=== PATIENT | female | born 1950 | race Caucasian/White ===

== ENCOUNTER 2019-05-14 16:37 | Emergency (ER) | payer OTHER ==
[~2019-05-14] VITALS: Ht 149.9 cm; Wt 57.2 kg
--- OUTSIDE RECORDS SUMMARY | 2019-05-14 16:40 | XMS REPORT | Clinical Summary ---
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 Active lisinopril Take 20 mg by 0 (PRINIVIL,ZESTRIL) 20 mg mouth daily. tablet Active lisinopril-hydrochlorothi Take 1 tablet 0 azide by mouth (PRINZIDE,ZESTORETIC) daily. 20-25 mg per tablet Active dicyclomine (BENTYL) 20 0 //201 mg tablet 7 Active Problems Problem Noted Date Swelling of lymph node 07/05/2017 Hoarseness 06/15/2017 Social History Date Tobacco Use Types Packs/Day Years Used Never Smoker Smokeless Tobacco: Never Used Alcohol Use Drinks/Week oz/Week Comments Yes Sex Assigned at Date Recorded Not on file Industry Job Start Date Occupation Not on file Not on file Not on file Travel End Travel History Travel Start No recent travel history available. Last Filed Vital Signs Not on file Plan of Treatment Health Maintenance Due Date Last Done Comments BREAST CANCER SCREENING 1999 COLONOSCOPY SCREENING 1999 SHINGLES VACCINES (#1) 1999 65+ PNEUMOCOCCAL VACCINE 2014 (1 of 2 - PCV13) INFLUENZA VACCINE 05/01/2019 Results Not on fileafter 05/13/2018 Insurance Type Payer Benefit Subscriber ID Effective Phone Address Plan / Dates Group HMO [employer] TEX[employer] xxxxxxxxx 2016-[id number] MATTEO hanson Advance Directives Patient has advance care planning documents on file. For more information, radha e contact: Pio Jin [address] [place] [address]
--- OUTSIDE RECORDS SUMMARY | 2019-05-14 16:40 | XMS REPORT | Summary of Care ---
Author Author [facility] Primary Care [facility] Organization [facility] Address Unknown Phone Unavailable Encounter HQ Jeffreyntr_dennis(FIN) [id number] Date(s): 04/09/18 - 04/09/18 [facility] [address] [place], [place] [address] [phone] Discharge Disposition: Home or Self Care Attending Physician: Norah Ni MD Vital Signs Most recent to 1 oldest [Reference Range]: Height 149.86 cm (04/09/18 11:30 AM) Temperature Oral 98.3 DegF [96.4-99.1 DegF] (04/09/18 11:30 AM) Blood Pressure 203/96 mmHg [90-140/60-90 mmHg] *HI* (04/09/18 11:30 AM) Respiratory Rate 18 BRMIN [14-20 BRMIN] (04/09/18 11:30 AM) Peripheral Pulse 74 bpm Rate [60-100 bpm] (04/09/18 11:30 AM) Weight 52.273 kg (04/09/18 11:30 AM) Body Mass Index 23.28 m2 (04/09/18 11:30 AM) Problem List No data available for this section Allergies, Adverse Reactions, Alerts Substance Reaction Severity Status NKDA Active Medications dicyclomine 20 mg oral tablet 20 mg=1 tab, PO, QID, 0 Refill(s) Start Date: 04/09/18 Status: Ordered Naprosyn 500 mg oral tablet 500 mg=1 tab, PO, BID, X 10 day, # 20 tab, 0 Refill(s), Pharmacy: [id number] Start Date: 04/09/18 Stop Date: 04/19/18 Status: Ordered Results No data available for this section Immunizations No data available for this section Procedures No data available for this section Social History Social History Type Response Smoking Status Never smoker; Ready to change: No; Concerns about tobacco use in household: No; Exposure to Tobacco Smoke None; Cigarette Smoking Last 365 Days No; Reg Smoking Cessation Counseling No entered on: 04/09/18 Assessment and Plan No data available for this section
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
[2019-05-14] MEDS ORDERED: HYDRALAZINE HCL 20 MG/ML VIAL IV ONE (16:59)
[2019-05-14 17:57] LABS: BASOPHILS % 0.6 % (0.0-1.0); EOSINOPHILS % 0.6 % (0.0-6.0); HEMATOCRIT 39.6 % (34.2-44.1); HEMOGLOBIN 13.6 g/dL (12.0-16.0); LYMPHOCYTES # (AUTO) 2.6 (1.0-3.2); MEAN CORPUSCULAR HEMOGLOBIN 34.4 pg (28-32); MEAN CORPUSCULAR HGB CONC 34.3 g/dL (31-35); MEAN CORPUSCULAR VOLUME 100.3 fL (81-99); MONOCYTES # (AUTO) 0.3 (0.2-0.8); MONOCYTES % 5.3 % (4.4-11.3); NEUTROPHILS # (AUTO) 3.2 (2.1-6.9); NEUTROPHILS % 51.2 % (38.7-80.0); PLATELET COUNT 245 x10e3/uL (140-360); RED BLOOD COUNT 3.95 x10e6/uL (3.6-5.1); RED CELL DISTRIBUTION WIDTH 13.5 % (11.7-14.4)
[2019-05-14 18:04] LABS: ALBUMIN 4.1 g/dL (3.5-5.0); ALBUMIN/GLOBULIN RATIO 1.1 (0.8-2.0); ANION GAP 14.2 mmol/L (8-16); CALCIUM 9.5 mg/dL (8.4-10.2); CREATININE, SERUM 1.02 mg/dL (0.57-1.11); POTASSIUM 3.2 mmol/L (3.5-5.1)
[2019-05-14 18:10] LABS: CREATINE KINASE MB 2.2 ng/mL (0-5.0)
[2019-05-14] MEDS ORDERED: SODIUM CHLORIDE 0.9% 500ML 500 ML IV ONE (18:15)
--- NOTE | 2019-05-14 19:02 | Diagnostic Imaging Report ---
CT BRAIN WO HISTORY: COMPARISON: None. Technique: Noncontrast axial scans were obtained from skull base to the vertex. Coronal and sagittal reconstructions obtained from the axial data. One or more of the following dose reduction techniques were used: Automated exposure control, adjustment of the mA and/or kV according to patient size, and/or utilization of iterative reconstruction technique. DISCUSSION: Scalp/Skull: Unremarkable. Brain sulci: Mildly prominent. Ventricles: Compensatory dilatation. Extra-axial spaces: No masses or fluid collections. Carotid siphon calcifications are present. Parenchyma: Mild bilateral deep white matter hypodensity is likely chronic microvascular ischemic change. Otherwise, no masses, hemorrhage, or large vascular territory acute infarct. Dural sinuses: No abnormal densities. Sellar/Suprasellar region: Intact. Skull base: Intact. Incidental findings: Mild left sphenoid sinus mucosal thickening is present. IMPRESSION: 1. No acute intracranial abnormalities. 2. Mild supratentorial chronic microvascular ischemic change. Mild generalized cerebral volume loss. Signed by: Dr. Romel Lamar M.D. on 05/14/2019 6:59 PM
--- NOTE | 2019-05-14 19:47 | Diagnostic Imaging Report ---
EXAM: CT Chest, Abdomen and Pelvis WITHOUT and WITH contrast INDICATION: Thoracoabdominal pain. Nausea vomiting. Concern for dissection. COMPARISON: None. TECHNIQUE: Chest, abdomen and pelvis were scanned utilizing a multidetector helical scanner from the lung apex to the pubic symphysis before and after administration of IV contrast. Coronal and sagittal reformations were obtained. Routine protocol was performed. Scan was performed when during portal venous phase. IV CONTRAST: 150 mL of Omnipaque 300 ORAL CONTRAST: Water RADIATION DOSE: Total DLP: 1762.74 mGy*cm Estimated effective dose: (DLP x 0.015 x size factor) mSv COMPLICATIONS: None FINDINGS: LINES and TUBES: None. LUNGS AND AIRWAYS: The lungs are unremarkable. Airways are normal. PLEURA: The pleural spaces are clear. HEART AND MEDIASTINUM: The thyroid gland is normal. No mediastinal, hilar or axillary lymphadenopathy. The heart is normal in size.. There is no pericardial effusion. HEPATOBILIARY: The liver is diffuse hypodense compared to the spleen, consistent with diffuse hepatic diffuse hepatic steatosis. No focal hepatic lesions. No biliary ductal dilation. GALLBLADDER: No radio-opaque stones or sludge. No wall thickening. SPLEEN: No splenomegaly. PANCREAS: No focal masses or ductal dilatation. ADRENALS: No adrenal nodules KIDNEYS/URETERS: Kidneys enhance symmetrically. No hydronephrosis. No cystic or solid mass lesions. No stones. GI TRACT: No abnormal distention, wall thickening, or evidence of bowel obstruction. Appendix is nonvisualized. PELVIC ORGANS/BLADDER: The uterus is absent. LYMPH NODES: No lymphadenopathy. VESSELS: There is moderate atherosclerotic disease in the aorta and major arterial branches. PERITONEUM / RETROPERITONEUM: No free air or fluid. BONES: Unremarkable. SOFT TISSUES: Unremarkable. IMPRESSION: 1. No acute abdominal pelvic abnormality. No aortic dissection. Signed by: Dr. Shira Lambert M.D. on 05/14/2019 7:44 PM
[2019-05-14 20:06] LABS: BILIRUBIN,URINE NEGATIVE (NEGATIVE); CLARITY,URINE CLEAR (CLEAR); COLOR,URINE YELLOW (YELLOW); KETONES,URINE NEGATIVE (NEGATIVE); LEUKOCYTE ESTERASE ,URINE NEGATIVE (NEGATIVE); NITRITE,URINE NEGATIVE (NEGATIVE); PROTEIN,URINE DIPSTICK NEGATIVE (NEGATIVE); URINE UROBILINOGEN 0.2 mg/dL (0.2 - 1)
[2019-05-14 20:24] LABS: BACTERIA,URINE RARE /HPF; EPITHELIAL CELLS,URINE FEW /LPF; RBC,URINE 0-5 /HPF (0-5)
[2019-05-14] MEDS ORDERED: IOPAMIDOL 370 MG/ML 200 ML INFUS..BTL INJ ONE (22:49)
[2019-05-14] MEDS ORDERED: SODIUM CHLORIDE 0.9% 100 ML 100 ML ONE (22:49)
== END 2019-05-14 20:37 | disposition home or self-care (01) ==
LOC: ER 16:37
DX: I10 Essential (primary) hypertension (principal); R10.32 Left lower quadrant pain
CPT/HCPCS: 36415; 70450; 71275; 74174; 80053; 81001; 82550; 82553; 84484; 85025; 87086; 99284; J0360; J7040; Q9967

== ENCOUNTER 2020-09-22 16:33 | Observation (INO) | payer OTHER ==
[~2020-09-22] VITALS: Ht 149.9 cm; Wt 57.2 kg
[2020-09-22] MEDS ORDERED: MORPHINE SULFATE INJ 4 MG/ML INJ 1ML IV STA (16:42)
[2020-09-22] MEDS ORDERED: ONDANSETRON HCL INJ 2MG/ML 2ML 2 MG/ML VIAL IV STA (16:42)
[2020-09-22] MEDS ORDERED: ASPIRIN 81 MG CHEW TAB PO ONE (16:45)
[2020-09-22 17:26] LABS: BASOPHILS % 0.3 % (0.0-1.0); EOSINOPHILS % 0.1 % (0.0-6.0); HEMATOCRIT 37.8 % (34.2-44.1); HEMOGLOBIN 13.4 g/dL (12.0-16.0); LYMPHOCYTES # (AUTO) 1.8 (1.0-3.2); LYMPHOCYTES % 23.7 % (18.0-39.1); MEAN CORPUSCULAR HEMOGLOBIN 32.6 pg (28-32); MEAN CORPUSCULAR HGB CONC 35.4 g/dL (31-35); MONOCYTES # (AUTO) 0.5 (0.2-0.8); MONOCYTES % 6.3 % (4.4-11.3); NEUTROPHILS # (AUTO) 5.2 (2.1-6.9); NEUTROPHILS % 69.5 % (38.7-80.0); PLATELET COUNT 239 x10e3/uL (140-360); RED BLOOD COUNT 4.11 x10e6/uL (3.6-5.1); RED CELL DISTRIBUTION WIDTH 11.9 % (11.7-14.4)
[2020-09-22 17:37] LABS: CLARITY,URINE CLEAR (CLEAR); COLOR,URINE YELLOW (YELLOW); LEUKOCYTE ESTERASE ,URINE SMALL (NEGATIVE); NITRITE,URINE NEGATIVE (NEGATIVE)
[2020-09-22 17:38] LABS: KETONES,URINE 2+ (NEGATIVE); PROTEIN,URINE DIPSTICK 1+ (NEGATIVE); URINE UROBILINOGEN 1 mg/dL (0.2 - 1)
[2020-09-22 17:38] LABS: ALANINE AMINOTRANSFERASE 21 IU/L (0-55); ALBUMIN 3.9 g/dL (3.5-5.0); ALKALINE PHOSPHATASE 60 IU/L (40-150); ANION GAP 18.7 mmol/L (8-16); BLOOD UREA NITROGEN 11 mg/dL (7-26); BUN/CREATININE RATIO 13 (6-25); CALCIUM 10.4 mg/dL (8.4-10.2); CARBON DIOXIDE 21 mmol/L (22-29); CHLORIDE 103 mmol/L (98-107); CREATINE KINASE 31 IU/L (29-168); CREATININE, SERUM 0.82 mg/dL (0.57-1.11); EST GLOMERULAR FILTRATION RATE > 60 ML/MIN (60-); GLUCOSE 107 mg/dL (74-118); SODIUM 140 mmol/L (136-145)
[2020-09-22 17:43] LABS: POTASSIUM 2.7 mmol/L (3.5-5.1)
[2020-09-22] MEDS ORDERED: POTASSIUM CHLORIDE 20 MEQ TAB CR PO STA (17:43)
[2020-09-22] MEDS ORDERED: POTASSIUM CHLORIDE 10MEQ/100ML 100 ML IV ONE (17:45)
[2020-09-22 17:47] LABS: BACTERIA,URINE FEW /HPF; EPITHELIAL CELLS,URINE FEW /LPF; RBC,URINE 0-5 /HPF (0-5)
[2020-09-22] MEDS ORDERED: SODIUM CHLORIDE 0.9% 50ML 50 ML ONE (19:34)
[2020-09-22] MEDS ORDERED: IOPAMIDOL 370 MG/ML 200 ML INFUS..BTL INJ ONE (19:34)
[2020-09-22] MEDS ORDERED: HYDRALAZINE HCL 20 MG/ML VIAL IV ONE (20:00)
[2020-09-22] MEDS ORDERED: HYDRALAZINE HCL 20 MG/ML VIAL ONE (20:10)
[2020-09-22 22:30] VITALS: BP 163/79
[2020-09-22] MEDS ORDERED: AMLODIPINE BESYLATE 10 MG TAB PO ONE (23:00)
[2020-09-22] MEDS ORDERED: HYDRALAZINE HCL 20 MG/ML VIAL IV PRN (23:00)
[2020-09-23] VITALS (9 sets, daily range): BP systolic 126–183; BP diastolic 70–93
[2020-09-23] MEDS: CEFTRIAXONE SOD 1 GM/NS 50 ML 50 ML IV SCH ×2 (00:16→23:15)
[2020-09-23] MEDS ORDERED: AMLODIPINE BESYL5 MG PO (00:29)
[2020-09-23 00:39] LABS: CREATINE KINASE MB 1.2 ng/mL (0-5.0)
[2020-09-23 05:10] LABS: BASOPHILS % 0.5 % (0.0-1.0); EOSINOPHILS % 0.2 % (0.0-6.0); HEMATOCRIT 34.8 % (34.2-44.1); HEMOGLOBIN 12.3 g/dL (12.0-16.0); LYMPHOCYTES # (AUTO) 2.1 (1.0-3.2); LYMPHOCYTES % 34.2 % (18.0-39.1); MEAN CORPUSCULAR HEMOGLOBIN 33.5 pg (28-32); MEAN CORPUSCULAR HGB CONC 35.3 g/dL (31-35); MEAN CORPUSCULAR VOLUME 94.8 fL (81-99); MONOCYTES # (AUTO) 0.5 (0.2-0.8); MONOCYTES % 7.7 % (4.4-11.3); NEUTROPHILS # (AUTO) 3.6 (2.1-6.9); NEUTROPHILS % 56.9 % (38.7-80.0); PLATELET COUNT 209 x10e3/uL (140-360); RED BLOOD COUNT 3.67 x10e6/uL (3.6-5.1); RED CELL DISTRIBUTION WIDTH 11.9 % (11.7-14.4)
[2020-09-23 05:35] LABS: ALANINE AMINOTRANSFERASE 17 IU/L (0-55); ALBUMIN 3.3 g/dL (3.5-5.0); ALKALINE PHOSPHATASE 53 IU/L (40-150); ANION GAP 16.3 mmol/L (8-16); BLOOD UREA NITROGEN 8 mg/dL (7-26); BUN/CREATININE RATIO 11 (6-25); CALCIUM 9.7 mg/dL (8.4-10.2); CARBON DIOXIDE 21 mmol/L (22-29); CHLORIDE 107 mmol/L (98-107); EST GLOMERULAR FILTRATION RATE > 60 ML/MIN (60-); GLUCOSE 77 mg/dL (74-118); SODIUM 141 mmol/L (136-145)
[2020-09-23 05:52] LABS: POTASSIUM 3.3 mmol/L (3.5-5.1)
[2020-09-23 06:12] LABS: MAGNESIUM 1.8 MG/DL (1.3-2.1)
[2020-09-23 06:32] LABS: THYROID STIMULATING HORMONE 1.612 uIU/mL (0.350-4.940)
[2020-09-23] MEDS ORDERED: POTASSIUM CHLORIDE 10MEQ EA PO ONE (08:55)
[2020-09-23] MEDS ORDERED: POTASSIUM PHOSPHATE 20 MM in SODIUM CHLORIDE 0.9% 250ML 250 ML IV ONE (09:00)
[2020-09-23] MEDS: FAMOTIDINE 20 MG TAB PO SCH ×2 (09:32→17:09)
[2020-09-23] MEDS: CYANOCOBALAMIN INJ 1,000 MCG/ML VIAL IM SCH (09:32)
[2020-09-23] MEDS: MAGNESIUM OXIDE 400 MG TAB PO SCH ×2 (09:32→17:09)
[2020-09-23] MEDS: AMLODIPINE BESYLATE 10 MG TAB PO SCH (09:32)
[2020-09-23] MEDS ORDERED: SODIUM CHLORIDE 0.9% 250ML 250 ML ONE ×2 (10:38→16:37)
[2020-09-24] VITALS: BP 123/59
[2020-09-24 04:00] VITALS: BP 138/70
[2020-09-24 04:58] LABS: BASOPHILS % 0.7 % (0.0-1.0); EOSINOPHILS % 0.4 % (0.0-6.0); HEMOGLOBIN 11.8 g/dL (12.0-16.0); LYMPHOCYTES # (AUTO) 1.9 (1.0-3.2); LYMPHOCYTES % 33.8 % (18.0-39.1); MEAN CORPUSCULAR HEMOGLOBIN 32.8 pg (28-32); MEAN CORPUSCULAR HGB CONC 34.7 g/dL (31-35); MEAN CORPUSCULAR VOLUME 94.4 fL (81-99); MONOCYTES # (AUTO) 0.4 (0.2-0.8); MONOCYTES % 7.7 % (4.4-11.3); NEUTROPHILS # (AUTO) 3.3 (2.1-6.9); NEUTROPHILS % 56.9 % (38.7-80.0); PLATELET COUNT 209 x10e3/uL (140-360); RED CELL DISTRIBUTION WIDTH 11.9 % (11.7-14.4)
[2020-09-24 05:14] LABS: ANION GAP 13.3 mmol/L (8-16); BLOOD UREA NITROGEN 7 mg/dL (7-26); BUN/CREATININE RATIO 11 (6-25); CALCIUM 9.3 mg/dL (8.4-10.2); CARBON DIOXIDE 23 mmol/L (22-29); CHLORIDE 108 mmol/L (98-107); CREATININE, SERUM 0.66 mg/dL (0.57-1.11); EST GLOMERULAR FILTRATION RATE > 60 ML/MIN (60-); GLUCOSE 97 mg/dL (74-118); POTASSIUM 3.3 mmol/L (3.5-5.1); SODIUM 141 mmol/L (136-145)
[2020-09-24] MEDS: FAMOTIDINE 20 MG TAB PO SCH (07:56)
[2020-09-24 08:00] VITALS: BP 143/74
[2020-09-24 08:01] VITALS: BP 138/70
[2020-09-24 08:05] VITALS: BP 138/70
[2020-09-24] MEDS ORDERED: POTASSIUM CHLORIDE 10MEQ EA PO ONE (08:30)
[2020-09-24] MEDS: AMLODIPINE BESYLATE 10 MG TAB PO SCH (08:59)
[2020-09-24] MEDS: MAGNESIUM OXIDE 400 MG TAB PO SCH (08:59)
[2020-09-24] MEDS: CYANOCOBALAMIN INJ 1,000 MCG/ML VIAL IM SCH (08:59)
== END 2020-09-24 09:45 | disposition home or self-care (01) ==
LOC: ER 17:23 → ERHOLD 21:41 → MED/SURG 21:51
PROVIDERS: ADMIT Internal Medicine; ATTEND Internal Medicine
DX: R07.89 Other chest pain (principal); E87.6 Hypokalemia; I10 Essential (primary) hypertension; I16.0 Hypertensive urgency; N39.0 Urinary tract infection, site not specified; K76.0 Fatty (change of) liver, not elsewhere classified; E87.8 Other disorders of electrolyte and fluid balance, not elsewhere classified; Z20.828 Contact with and (suspected) exposure to other viral communicable diseases; E83.42 Hypomagnesemia
CPT/HCPCS: 36415 ×3; 70450; 71045; 74177; 80048; 80053 ×2; 81001; 82550 ×2; 82553 ×2; 82607; 82746; 83690; 83735; 83880; 84100; 84443; 84484 ×2; 85025 ×3; 85379; 93005 ×2; 93306; 93880; 99284; G0378 ×3; J0360 ×2; J0696 ×2; J2270; J2405; J3420 ×2; J3480; J7050; Q9967; U0002

== ENCOUNTER 2020-10-07 13:30 | Inpatient (IN) | payer OTHER ==
[~2020-10-07] VITALS: Ht 149.9 cm; Wt 44.3 kg
[~2020-10-07 13:30] MED LIST: AMLODIPINE BESYL5 MG PO
[2020-10-07] MEDS ORDERED: POTASSIUM CHLO10 ME1 PO (14:17)
[2020-10-07] MEDS ORDERED: FAMOTIDINE40 MG (14:17)
[2020-10-07] MEDS ORDERED: B12 ACTIVE1000 MCG (14:17)
[2020-10-07] MEDS ORDERED: FOLIC ACID0.4 MG (14:17)
[2020-10-07] MEDS ORDERED: MAGNESIUM OXID400 MG PO (14:17)
[2020-10-07] MEDS ORDERED: AMLODIPINE BESY10 MG PO (14:17)
[2020-10-07] MEDS ORDERED: DONEPEZIL HCL5 MG (14:17)
[2020-10-07 14:22] LABS: BASOPHILS # (AUTO) 0.1 (0.0-0.1); BASOPHILS % 0.7 % (0.0-1.0); HEMATOCRIT 41.3 % (34.2-44.1); HEMOGLOBIN 14.4 g/dL (12.0-16.0); LYMPHOCYTES # (AUTO) 1.4 (1.0-3.2); LYMPHOCYTES % 20.6 % (18.0-39.1); MEAN CORPUSCULAR HEMOGLOBIN 31.9 pg (28-32); MEAN CORPUSCULAR HGB CONC 34.9 g/dL (31-35); MEAN CORPUSCULAR VOLUME 91.6 fL (81-99); MONOCYTES # (AUTO) 0.4 (0.2-0.8); MONOCYTES % 6.3 % (4.4-11.3); NEUTROPHILS % 72.1 % (38.7-80.0); PLATELET COUNT 266 x10e3/uL (140-360); RED BLOOD COUNT 4.51 x10e6/uL (3.6-5.1); RED CELL DISTRIBUTION WIDTH 11.9 % (11.7-14.4)
[2020-10-07 14:56] LABS: ALANINE AMINOTRANSFERASE 44 IU/L (0-55); ALBUMIN 4.4 g/dL (3.5-5.0); ALBUMIN/GLOBULIN RATIO 1.1 (0.8-2.0); ALKALINE PHOSPHATASE 77 IU/L (40-150); ANION GAP 20.7 mmol/L (8-16); BLOOD UREA NITROGEN 12 mg/dL (7-26); BUN/CREATININE RATIO 14 (6-25); CALCIUM 9.9 mg/dL (8.4-10.2); CARBON DIOXIDE 15 mmol/L (22-29); CHLORIDE 97 mmol/L (98-107); CREATINE KINASE 52 IU/L (29-168); CREATININE, SERUM 0.88 mg/dL (0.57-1.11); EST GLOMERULAR FILTRATION RATE > 60 ML/MIN (60-); GLUCOSE 98 mg/dL (74-118); POTASSIUM 3.7 mmol/L (3.5-5.1); SODIUM 129 mmol/L (136-145)
[2020-10-07] MEDS ORDERED: ACETAMINOPHEN 325 MG TAB ONE (14:58)
[2020-10-07] MEDS ORDERED: ONDANSETRON HCL 4 MG ORAL DISINTEGRATING TAB ONE (14:59)
[2020-10-07] MEDS ORDERED: ONDANSETRON HCL 4 MG ORAL DISINTEGRATING TAB PO ONE (15:00)
[2020-10-07] MEDS ORDERED: ACETAMINOPHEN 325 MG TAB PO ONE (15:00)
[2020-10-07] MEDS ORDERED: SODIUM CHLORIDE 0.9% 500ML 500 ML IV STA (15:13)
[2020-10-07] MEDS ORDERED: SODIUM CHLORIDE 0.9% 500ML 500 ML ONE (15:22)
[2020-10-07 18:36] LABS: ANION GAP 18.2 mmol/L (8-16); BLOOD UREA NITROGEN 11 mg/dL (7-26); BUN/CREATININE RATIO 13 (6-25); CALCIUM 9.3 mg/dL (8.4-10.2); CARBON DIOXIDE 17 mmol/L (22-29); CHLORIDE 103 mmol/L (98-107); CREATININE, SERUM 0.82 mg/dL (0.57-1.11); EST GLOMERULAR FILTRATION RATE > 60 ML/MIN (60-); GLUCOSE 90 mg/dL (74-118); POTASSIUM 4.2 mmol/L (3.5-5.1); SODIUM 134 mmol/L (136-145)
[2020-10-07 20:00] VITALS: BP 166/73
[2020-10-07 21:00] VITALS: BP 166/73
[2020-10-08] VITALS (8 sets, daily range): BP systolic 127–146; BP diastolic 70–86
[2020-10-08 06:29] LABS: BASOPHILS % 0.6 % (0.0-1.0); EOSINOPHILS % 0.2 % (0.0-6.0); HEMATOCRIT 35.1 % (34.2-44.1); HEMOGLOBIN 12.2 g/dL (12.0-16.0); LYMPHOCYTES # (AUTO) 1.4 (1.0-3.2); LYMPHOCYTES % 27.6 % (18.0-39.1); MEAN CORPUSCULAR HEMOGLOBIN 32.4 pg (28-32); MEAN CORPUSCULAR HGB CONC 34.8 g/dL (31-35); MEAN CORPUSCULAR VOLUME 93.4 fL (81-99); MONOCYTES # (AUTO) 0.4 (0.2-0.8); NEUTROPHILS # (AUTO) 3.2 (2.1-6.9); NEUTROPHILS % 63.2 % (38.7-80.0); PLATELET COUNT 201 x10e3/uL (140-360); RED BLOOD COUNT 3.76 x10e6/uL (3.6-5.1); RED CELL DISTRIBUTION WIDTH 11.8 % (11.7-14.4)
[2020-10-08 06:39] LABS: ANION GAP 16.7 mmol/L (8-16); BLOOD UREA NITROGEN 11 mg/dL (7-26); BUN/CREATININE RATIO 15 (6-25); CALCIUM 8.8 mg/dL (8.4-10.2); CARBON DIOXIDE 18 mmol/L (22-29); CHLORIDE 105 mmol/L (98-107); CREATININE, SERUM 0.72 mg/dL (0.57-1.11); EST GLOMERULAR FILTRATION RATE > 60 ML/MIN (60-); GLUCOSE 68 mg/dL (74-118); POTASSIUM 3.7 mmol/L (3.5-5.1); SODIUM 136 mmol/L (136-145)
[2020-10-08] MEDS: LACTATED RINGER'S 1,000 ML INJ SCH ×2 (08:22→22:41)
[2020-10-08] MEDS: FAMOTIDINE 20 MG/2 ML VIAL IV SCH ×2 (08:23→17:00)
[2020-10-08] MEDS ORDERED: ONDANSETRON HCL INJ 2MG/ML 2ML 2 MG/ML VIAL IV PRN (09:15)
[2020-10-08] MEDS ORDERED: ONDANSETRON HCL 4 MG ORAL DISINTEGRATING TAB PO PRN (09:15)
[2020-10-08] MEDS ORDERED: ACETAMINOPHEN 325 MG TAB PO PRN (09:15)
[2020-10-08] MEDS ORDERED: LIDOCAINE HCL 2% LOCAL INJ 5 ML SDV VIAL INJ ONE (12:04)
[2020-10-08] MEDS ORDERED: PROPOFOL IV EMULSION 10 MG/ML 20 ML VIAL ONE (12:04)
[2020-10-08] MEDS ORDERED: KETAMINE HCL INJ 50 MG/ML 10 ML VIAL ONE (12:25)
[2020-10-08] MEDS: MEGESTROL ACETATE 40 MG TAB PO SCH (17:00)
[2020-10-08] MEDS ORDERED: CEFAZOLIN SOD 1 GM/NS 50ML 50 ML IV ONE (19:02)
[2020-10-08] MEDS: MIRTAZAPINE 15 MG TAB PO SCH (20:16)
[2020-10-08] MEDS: DONEPEZIL HCL 5 MG TAB PO SCH (20:17)
[2020-10-09] VITALS (8 sets, daily range): BP systolic 129–170; BP diastolic 67–86
[2020-10-09 06:12] LABS: BASOPHILS % 0.4 % (0.0-1.0); EOSINOPHILS % 0.1 % (0.0-6.0); LYMPHOCYTES # (AUTO) 1.4 (1.0-3.2); LYMPHOCYTES % 15.9 % (18.0-39.1); MEAN CORPUSCULAR HEMOGLOBIN 31.9 pg (28-32); MEAN CORPUSCULAR HGB CONC 34.2 g/dL (31-35); MEAN CORPUSCULAR VOLUME 93.4 fL (81-99); MONOCYTES # (AUTO) 0.4 (0.2-0.8); NEUTROPHILS # (AUTO) 6.7 (2.1-6.9); NEUTROPHILS % 78.2 % (38.7-80.0); PLATELET COUNT 172 x10e3/uL (140-360); RED BLOOD COUNT 4.07 x10e6/uL (3.6-5.1); RED CELL DISTRIBUTION WIDTH 11.9 % (11.7-14.4)
[2020-10-09 06:29] LABS: ANION GAP 17.6 mmol/L (8-16); BLOOD UREA NITROGEN 9 mg/dL (7-26); BUN/CREATININE RATIO 13 (6-25); CARBON DIOXIDE 17 mmol/L (22-29); CHLORIDE 105 mmol/L (98-107); CREATININE, SERUM 0.71 mg/dL (0.57-1.11); EST GLOMERULAR FILTRATION RATE > 60 ML/MIN (60-); GLUCOSE 71 mg/dL (74-118); POTASSIUM 3.6 mmol/L (3.5-5.1); SODIUM 136 mmol/L (136-145)
[2020-10-09] MEDS: AMLODIPINE BESYLATE 10 MG TAB PO SCH (08:47)
[2020-10-09] MEDS: MEGESTROL ACETATE 40 MG TAB PO SCH ×2 (08:47→16:24)
[2020-10-09] MEDS: FAMOTIDINE 20 MG/2 ML VIAL IV SCH ×2 (08:47→16:24)
[2020-10-09] MEDS: MAGNESIUM OXIDE 400 MG TAB PO SCH (08:47)
[2020-10-09] MEDS: FOLIC ACID 1 MG TAB PO SCH (08:47)
[2020-10-09] MEDS: LACTATED RINGER'S 1,000 ML INJ SCH (11:40)
[2020-10-09] MEDS: DONEPEZIL HCL 5 MG TAB PO SCH (21:05)
[2020-10-09] MEDS: MIRTAZAPINE 15 MG TAB PO SCH (21:05)
[2020-10-10] MEDS: LACTATED RINGER'S 1,000 ML INJ SCH ×3 (03:00→14:20)
[2020-10-10 08:45] VITALS: BP 170/86
[2020-10-10] MEDS: FOLIC ACID 1 MG TAB PO SCH (09:00)
[2020-10-10] MEDS: AMLODIPINE BESYLATE 10 MG TAB PO SCH (09:00)
[2020-10-10] MEDS: MAGNESIUM OXIDE 400 MG TAB PO SCH (09:00)
[2020-10-10] MEDS: FAMOTIDINE 20 MG/2 ML VIAL IV SCH ×2 (09:00→17:00)
[2020-10-10] MEDS: MEGESTROL ACETATE 40 MG TAB PO SCH ×2 (09:00→17:00)
[2020-10-10 09:34] VITALS: BP 147/75
[2020-10-10 12:15] VITALS: BP 149/71
[2020-10-10 17:34] VITALS: BP 141/78
[2020-10-10 20:00] VITALS: BP 137/72
[2020-10-10] MEDS: MIRTAZAPINE 15 MG TAB PO SCH (21:01)
[2020-10-10] MEDS: DONEPEZIL HCL 5 MG TAB PO SCH (21:01)
[2020-10-10 23:03] VITALS: BP 137/72
[2020-10-11] VITALS (8 sets, daily range): BP systolic 122–137; BP diastolic 67–84
[2020-10-11] MEDS: LACTATED RINGER'S 1,000 ML INJ SCH (03:00)
[2020-10-11] MEDS: FAMOTIDINE 20 MG/2 ML VIAL IV SCH (09:28)
[2020-10-11] MEDS: MEGESTROL ACETATE 40 MG TAB PO SCH ×2 (09:28→17:34)
[2020-10-11] MEDS: AMLODIPINE BESYLATE 10 MG TAB PO SCH (09:28)
[2020-10-11] MEDS: MAGNESIUM OXIDE 400 MG TAB PO SCH (09:28)
[2020-10-11] MEDS: FOLIC ACID 1 MG TAB PO SCH (09:28)
[2020-10-11] MEDS: FAMOTIDINE 20 MG TAB PO SCH (17:33)
[2020-10-11] MEDS: MIRTAZAPINE 15 MG TAB PO SCH (21:45)
[2020-10-11] MEDS: DONEPEZIL HCL 5 MG TAB PO SCH (21:45)
[2020-10-12] VITALS: BP 133/63
[2020-10-12 04:00] VITALS: BP 154/64
[2020-10-12 07:37] VITALS: BP 125/64
[2020-10-12 07:51] VITALS: BP 125/64
[2020-10-12] MEDS: MEGESTROL ACETATE 40 MG TAB PO SCH (09:02)
[2020-10-12] MEDS: FOLIC ACID 1 MG TAB PO SCH (09:02)
[2020-10-12] MEDS: FAMOTIDINE 20 MG TAB PO SCH (09:02)
[2020-10-12] MEDS: AMLODIPINE BESYLATE 10 MG TAB PO SCH (09:02)
[2020-10-12] MEDS: MAGNESIUM OXIDE 400 MG TAB PO SCH (09:02)
[2020-10-12 11:49] VITALS: BP 145/75
== END 2020-10-12 14:18 | disposition home or self-care (01) | DRG 640 ==
LOC: ER 13:34 → ERHOLD 16:27 → MED/SURG2 18:25
PROVIDERS: ADMIT Internal Medicine; ATTEND Internal Medicine
PROC: 0DH68UZ Insertion of Feeding Device into Stomach, Via Natural or Artificial Opening Endoscopic (ICD-10-PCS; principal; 2020-10-08 19:00)
DX: E87.1 Hypo-osmolality and hyponatremia (principal); E43 Unspecified severe protein-calorie malnutrition; Z68.1 Body mass index [BMI] 19.9 or less, adult; R62.7 Adult failure to thrive; G30.9 Alzheimer's disease, unspecified; F02.80 Dementia in other diseases classified elsewhere, unspecified severity, without behavioral disturbance, psychotic disturbance, mood disturbance, and anxiety; I10 Essential (primary) hypertension; K76.0 Fatty (change of) liver, not elsewhere classified; Z20.822 Contact with and (suspected) exposure to COVID-19; R68.81 Early satiety
CPT/HCPCS: 36415; 43239; 43246; 80048; 80053; 82550; 82553; 82607; 82746; 84484; 85025; 88305; 88312; 93005; 97139; 99284; J0690; J2001; J2405; J7040; J7121; Q0162; U0002